=== PATIENT | male | born 1945 | race Caucasian/White ===

== ENCOUNTER 2020-04-30 14:01 | Inpatient (IN) | payer OTHER ==
[~2020-04-30] VITALS: Ht 185.4 cm; Wt 63.5 kg
[2020-04-30] MEDS ORDERED: methylPREDNISolone SOD SUCC 125 MG/2 ML VL IV ONE (14:15)
[2020-04-30] MEDS ORDERED: ONDANSETRON HCL 4 MG/2 ML VIAL IV ONE (14:30)
[2020-04-30] MEDS ORDERED: KETOROLAC TROMETH 30 MG/ML 1ML VIAL IV ONE (14:30)
[2020-04-30 15:12] LABS: Basophils # (auto) 0 10 ^3/uL (0-0.2); Eosinophils # (auto) 0 10 ^3/uL (0-0.8); Eosinophils % (auto) 0.1 % (0.0-7.0); Lymphocytes # (auto) 0.7 10 ^3/uL (0.4-5.4); Mean Corpuscular Hemoglobin 34.9 pg (28.0-32.0); Mean Corpuscular Hgb Conc. 34.2 g/dL (32.0-36.0); Monocytes # (auto) 0.9 10 ^3/uL (0-1.3); Neutrophils # (auto) 7.3 10 ^3/uL (1.6-8.6)
[2020-04-30 15:15] LABS: Basophils % (auto) 0.5 % (0.0-2.0); Hematocrit 30.4 % (41.0-53.0); Hemoglobin 10.4 g/dL (13.5-17.5); Lymphocytes % (auto) 8.1 % (10.0-50.0); Mean Corpuscular Volume 101.8 fL (80.0-100.0); Monocytes % (auto) 9.9 % (0.0-12.0); Neutrophils % (auto) 81.4 % (37.0-80.0); Red Blood Cells 2.99 10^6/uL (4.5-5.90); Red Cell Distribution Width 14.8 % (11.8-14.3)
[2020-04-30] MEDS ORDERED: AZITHROMYCIN 500MG/ 250ML 250 ML IV ONE (15:15)
[2020-04-30 15:33] LABS: Albumin 2.4 g/dL (3.4-5.0); Anion Gap 3 (5-15); Blood Urea Nitrogen 11 mg/dL (7-18); Calcium 7.9 mg/dL (8.5-10.1); Carbon Dioxide 30 mmol/L (21-32); Chloride 103 mmol/L (98-107); Potassium 3.8 mmol/L (3.5-5.1); Sodium 136 mmol/L (136-145)
[2020-04-30 15:41] LABS: Alanine Aminotransferase 12 U/L (16-61); Alkaline Phosphatase 90 U/L (45-117); Aspartate Aminotransferase 13 U/L (15-37); BUN/Creatinine Ratio 13.9; Bilirubin, Total 0.4 mg/dL (0.2-1.0); GFR African American 123 mL/min; GFR Non-African American 102 mL/min; Glucose 113 mg/dL (74-106); Total Protein 6.9 g/dL (6.4-8.2)
[2020-04-30] MEDS ORDERED: NITROGLYCERIN 0.4 MG SL TAB SL PRN (17:00)
[2020-04-30] MEDS ORDERED: IOHEXOL 350 MG/ML 100ML IJ ONE (17:00)
[2020-04-30] MEDS ORDERED: FUROSEMIDE 20 MG/2 ML VIAL IV ONE (17:00)
[2020-04-30] MEDS ORDERED: PRIM250T29 PO (17:04)
[2020-04-30] MEDS ORDERED: PHE100C PO (17:04)
[2020-04-30] MEDS ORDERED: FLUT1AER5 IN (17:04)
[2020-04-30] MEDS ORDERED: TRAM50TA2 PO (17:04)
[2020-04-30] MEDS ORDERED: DOCU100T15 PO (17:04)
[2020-04-30] MEDS: APIXABAN 5 MG TAB PO SCH (20:44)
[2020-05-01] MEDS: methylPREDNISolone SOD SUCC 40 MG/ML VL IV SCH ×2 (03:06→10:35)
[2020-05-01] MEDS ORDERED: FUROSEMIDE 20 MG/2 ML VIAL IV SCH (06:00)
[2020-05-01] MEDS: APIXABAN 5 MG TAB PO SCH (10:00)
[2020-05-01] MEDS ORDERED: levoFLOXacin 500MG 100 ML IV SCH (10:00)
[2020-05-01] MEDS ORDERED: PHENYTOIN SODIUM 100 MG CAP PO SCH (10:00)
[2020-05-01 11:00] VITALS: BP 104/62
[2020-05-01] MEDS ORDERED: HYDROcodone-ACET 5/325MG TAB PO ONE (11:15)
[2020-05-01 12:30] LABS: Basophils # (auto) 0 10 ^3/uL (0-0.2); Basophils % (auto) 0.3 % (0.0-2.0); Eosinophils # (auto) 0 10 ^3/uL (0-0.8); Hemoglobin 10.3 g/dL (13.5-17.5); Lymphocytes # (auto) 0.6 10 ^3/uL (0.4-5.4); Monocytes # (auto) 0.7 10 ^3/uL (0-1.3); Neutrophils # (auto) 6.7 10 ^3/uL (1.6-8.6)
[2020-05-01 12:32] LABS: Eosinophils % (auto) 0.1 % (0.0-7.0); Hematocrit 30.2 % (41.0-53.0); Lymphocytes % (auto) 7.9 % (10.0-50.0); Mean Corpuscular Hemoglobin 34.9 pg (28.0-32.0); Mean Corpuscular Hgb Conc. 34.3 g/dL (32.0-36.0); Mean Corpuscular Volume 101.8 fL (80.0-100.0); Monocytes % (auto) 8.1 % (0.0-12.0); Neutrophils % (auto) 83.6 % (37.0-80.0); Red Blood Cells 2.96 10^6/uL (4.5-5.90); Red Cell Distribution Width 14.8 % (11.8-14.3); White Blood Cell 8.1 10^3/uL (4.4-10.8)
[2020-05-01 13:07] LABS: Calcium 7.9 mg/dL (8.5-10.1); Potassium 3.7 mmol/L (3.5-5.1)
[2020-05-01 13:10] LABS: BUN/Creatinine Ratio 15.8; Magnesium 1.9 mg/dL (1.6-2.6)
[2020-05-01] MEDS ORDERED: LEVO500T31 PO (13:37)
[2020-05-01] MEDS ORDERED: IPRIH IN (13:37)
[2020-05-01] MEDS ORDERED: APIX5TAB PO (13:37)
[2020-05-01] MEDS ORDERED: FURO1TAB33 PO (13:37)
[2020-05-01] MEDS ORDERED: PRED20TA2 PO (13:37)
[2020-05-01] MEDS ORDERED: ALBUAER3 IN (13:37)
[2020-05-07] MEDS ORDERED: APIXABAN 5 MG TAB PO SCH (22:00)
== END 2020-05-01 14:48 | disposition home health service (06) | DRG 189 ==
LOC: ER 14:01 → EDBD 14:01 → TELE 14:02
PROVIDERS: ADMIT Internal Medicine; ATTEND Internal Medicine
DX: J96.01 Acute respiratory failure with hypoxia (principal); J18.9 Pneumonia, unspecified organism; J98.11 Atelectasis; I82.412 Acute embolism and thrombosis of left femoral vein; J44.1 Chronic obstructive pulmonary disease with (acute) exacerbation; J44.0 Chronic obstructive pulmonary disease with (acute) lower respiratory infection; K59.09 Other constipation; I50.9 Heart failure, unspecified; Z96.652 Presence of left artificial knee joint; G40.909 Epilepsy, unspecified, not intractable, without status epilepticus; Z83.3 Family history of diabetes mellitus; Z87.891 Personal history of nicotine dependence; Z99.81 Dependence on supplemental oxygen; I11.0 Hypertensive heart disease with heart failure; Z20.822 Contact with and (suspected) exposure to COVID-19
CPT/HCPCS: 36415; 71045; 71275; 80048; 80053; 83605; 83735; 83880; 84484; 85025; 85379; 87040; 87070; 87205; 87426; 93306; 93970; 96374; 96375; G0378; J1885; J1956; J2405